=== PATIENT | male | born 1970 | race Caucasian/White ===

== ENCOUNTER 2019-12-29 14:37 | Emergency (ER) | payer SELFPAY ==
[~2019-12-29] VITALS: Ht 165.1 cm; Wt 86.0 kg
[2019-12-29 16:34] VITALS: BP 128/78
== END 2019-12-29 16:36 | disposition home or self-care (01) ==
LOC: ER 14:37
DX: H66.91 Otitis media, unspecified, right ear (principal); H60.501 Unspecified acute noninfective otitis externa, right ear
CPT/HCPCS: 99283